=== PATIENT | male | born 1945 ===

== ENCOUNTER 2017-08-28 11:00 | Inpatient (IN) | payer OTHER ==
[~2017-08-28] VITALS: Ht 167.6 cm; Wt 51.3 kg
[~2017-08-28 11:00] MED LIST: COZAAR25 MG PO; DIGOX125 MCG PO; GABAPENTIN600 MG PO; LAMICTAL25 MG PO; METFORMIN HCL500 MG PO; PROCARDIA PO; PROTONIX40 MG PO; SYNTHROID88 MCG PO; TENORMIN50 M1 PO; XARELTO20 MG PO; ZOCOR40 MG PO
[2017-08-28] MEDS ORDERED: LOPRESS PO (12:47)
[2017-08-28] MEDS ORDERED: PROTONIX40 M1 PO (12:47)
[2017-08-28] MEDS ORDERED: PREDNISONE PO (12:48)
[2017-08-28] MEDS ORDERED: CENTRUM SILVER1 EAC4 PO (12:49)
== END 2017-09-06 14:46 | disposition home or self-care (01) | DRG 329 ==
LOC: SURH 09-04 07:10 → O/R 09-04 07:10 → SURH 09-04 11:00
PROVIDERS: Colon & Rectal Surgery
PROC: 0DQB4ZZ Repair Ileum, Percutaneous Endoscopic Approach (ICD-10-PCS; principal; 2017-09-04 13:15)
DX: Z43.2 Encounter for attention to ileostomy (principal); K63.1 Perforation of intestine (nontraumatic); C20 Malignant neoplasm of rectum; K56.0 Paralytic ileus; K56.51 Intestinal adhesions [bands], with partial obstruction; I11.0 Hypertensive heart disease with heart failure; I50.89 Other heart failure; I48.2 Chronic atrial fibrillation; I25.10 Atherosclerotic heart disease of native coronary artery without angina pectoris

== ENCOUNTER 2017-09-08 19:26 | Inpatient (IN) | payer OTHER ==
[~2017-09-08] VITALS: Ht 167.6 cm; Wt 51.3 kg
[~2017-09-08 19:26] MED LIST changes: +CENTRUM SILVER1 EAC4 PO; +LOPRESS PO; +PREDNISONE PO; +PROTONIX40 M1 PO
== END 2017-10-15 13:27 | disposition home or self-care (01) | DRG 344 ==
LOC: ER 19:26 → SURH 09-09 13:07 → MEDI 09-09 13:07 → EDBD 09-09 13:07 → SURH 09-09 15:12
PROC: 4A12X4Z Monitoring of Cardiac Electrical Activity, External Approach (ICD-10-PCS; 2017-09-09)
PROC: 3E0336Z Introduction of Nutritional Substance into Peripheral Vein, Percutaneous Approach (ICD-10-PCS; principal; 2017-09-10)
PROC: 02H633Z Insertion of Infusion Device into Right Atrium, Percutaneous Approach (ICD-10-PCS; 2017-09-16)
PROC: BW21Y0Z Computerized Tomography (CT Scan) of Abdomen and Pelvis using Other Contrast, Unenhanced and Enhanced (ICD-10-PCS; 2017-09-17)
PROC: 0W9J30Z Drainage of Pelvic Cavity with Drainage Device, Percutaneous Approach (ICD-10-PCS; 2017-09-23)
PROC: BW21Y0Z Computerized Tomography (CT Scan) of Abdomen and Pelvis using Other Contrast, Unenhanced and Enhanced (ICD-10-PCS; 2017-09-28)
PROC: CT131ZZ Planar Nuclear Medicine Imaging of Kidneys, Ureters and Bladder using Technetium 99m (Tc-99m) (ICD-10-PCS; 2017-09-30)
PROC: 0T768DZ Dilation of Right Ureter with Intraluminal Device, Via Natural or Artificial Opening Endoscopic (ICD-10-PCS; 2017-10-03)
PROC: BW21Y0Z Computerized Tomography (CT Scan) of Abdomen and Pelvis using Other Contrast, Unenhanced and Enhanced (ICD-10-PCS; 2017-10-05)
PROC: 0D9P0ZX Drainage of Rectum, Open Approach, Diagnostic (ICD-10-PCS; 2017-10-09)
PROC: 0DJD7ZZ Inspection of Lower Intestinal Tract, Via Natural or Artificial Opening (ICD-10-PCS; 2017-10-09)
PROC: 3E0F7GC Introduction of Other Therapeutic Substance into Respiratory Tract, Via Natural or Artificial Opening (ICD-10-PCS; 2017-10-10)
DX: K65.1 Peritoneal abscess (principal); K63.1 Perforation of intestine (nontraumatic); K91.31 Postprocedural partial intestinal obstruction; T81.4XXA Infection following a procedure, initial encounter; J90 Pleural effusion, not elsewhere classified; N13.1 Hydronephrosis with ureteral stricture, not elsewhere classified; K61.1 Rectal abscess; B37.49 Other urogenital candidiasis; B37.89 Other sites of candidiasis; C20 Malignant neoplasm of rectum; I48.2 Chronic atrial fibrillation; I25.10 Atherosclerotic heart disease of native coronary artery without angina pectoris; E86.0 Dehydration; I11.0 Hypertensive heart disease with heart failure; I50.9 Heart failure, unspecified; E11.65 Type 2 diabetes mellitus with hyperglycemia; E03.8 Other specified hypothyroidism; K52.89 Other specified noninfective gastroenteritis and colitis; Y83.8 Other surgical procedures as the cause of abnormal reaction of the patient, or of later complication, without mention of misadventure at the time of the procedure; Y92.098 Other place in other non-institutional residence as the place of occurrence of the external cause; B96.20 Unspecified Escherichia coli [E. coli] as the cause of diseases classified elsewhere; B96.5 Pseudomonas (aeruginosa) (mallei) (pseudomallei) as the cause of diseases classified elsewhere

== ENCOUNTER → 2017-11-09 | Emergency (ER) | payer OTHER ==
[~2017-11-09] VITALS: Ht 167.6 cm; Wt 51.3 kg
[~2017-11-09] MED LIST changes: +CIPRO500 MG PO; +FLAGYL500MG PO; +INTESTINEX680 M1 PO; +LEVSIN0.125 MG PO
== END | disposition home or self-care (01) ==
LOC: ER 14:46
DX: A04.8 Other specified bacterial intestinal infections (principal); K52.9 Noninfective gastroenteritis and colitis, unspecified; E86.0 Dehydration